=== PATIENT | male | born 1930 | race African-American/Black ===

== ENCOUNTER 2017-08-24 16:58 | Inpatient (IN) | payer OTHER ==
[~2017-08-24] VITALS: Ht 167.6 cm; Wt 8.2 kg
[2017-08-24 19:15] LABS: BASOPHILS % 0.6 % (0.0-2.0); EOSINOPHILS % 0.6 % (0.0-5.0); HEMATOCRIT. 30.7 % (42.0-52.0); HEMOGLOBIN. 10.4 g/dL (14.0-18.0); LYMPHOCYTES % 25.4 % (20.0-50.0); MEAN CORPUSCULAR HEMOGLOBIN 31.6 pg (28.0-32.0); MEAN CORPUSCULAR VOLUME 93.1 fL (80.0-94.0); MEAN PLATELET VOLUME 9.5 fl (7.4-10.4); MONOCYTES % 5.3 % (2.0-8.0); NEUTROPHILS % 68.1 % (40.0-76.0); PLATELET 144 x1000/uL (130-400); RED CELL DISTRIBUTION WIDTH 16.8 % (11.6-14.6)
[2017-08-24 19:17] LABS: CHLORIDE 113 mEq/L (98-107)
[2017-08-24 19:18] LABS: PROTHROMBIN TIME 10.5 sec (9.4-11.6)
[2017-08-24] MEDS ORDERED: DEXTROSE 50% WATER 50ML SYRINGE IV ONE (19:22)
[2017-08-24 19:26] LABS: CARBON DIOXIDE 25 mEq/L (21-32)
[2017-08-24 19:28] LABS: CLARITY URINE TURBID (CLEAR); COLOR URINE YELLOW (YELLOW); GLUCOSE URINE NEGATIVE (NEGATIVE); KETONES URINE NEGATIVE (NEGATIVE); LEUKOCYTE ESTERASE URINE 3+ (NEGATIVE); NITRITE URINE NEGATIVE (NEGATIVE); OCCULT BLOOD URINE 2+ (NEGATIVE); PROTEIN URINE TRACE (NEGATIVE); SPECIFIC GRAVITY URINE 1.016 (1.005-1.030); UROBILINOGEN URINE 0.2 E.U./dL (0.2-1.0)
[2017-08-24] MEDS ORDERED: CEFTRIAXONE 2 G PREMIX 50 ML IV ONE (20:00)
[2017-08-24] MEDS ORDERED: LEVOFLOXACIN 750MG PREMIX 150 ML IV ONE (20:00)
[2017-08-24] MEDS ORDERED: SODIUM CHLORIDE 0.9% 1000ML BAG (SEPSIS BOLUS) IV ONE (20:45)
[2017-08-24] MEDS ORDERED: DOCUSATE SODIUM 100MG CAPSULE PO PRN (21:30)
[2017-08-24] MEDS ORDERED: ONDANSETRON HCL 4MG/2ML VIAL IV PRN (21:30)
[2017-08-24] MEDS ORDERED: ACETAMINOPHEN 325MG TABLET PO PRN (21:30)
[2017-08-24 22:04] LABS: AMMONIA 43 uMol/L (<32)
[2017-08-24 22:30] VITALS: BP 110/47
[2017-08-24 23:00] VITALS: BP 110/47
[2017-08-24] MEDS ORDERED: FURO80TA3 PO (23:24)
[2017-08-24] MEDS ORDERED: ASPI-867 PO (23:25)
[2017-08-24] MEDS ORDERED: ATOR40TA70 PO (23:25)
[2017-08-25] VITALS: BP 109/48
[2017-08-25] MEDS: DEXT 5%/0.45% NACL 1000ML 1,000 ML IV SCH ×2 (00:31→21:40)
[2017-08-25] MEDS: ENOXAPARIN 40MG/0.4ML SYR SUBCUT SCH ×2 (00:35→21:32)
[2017-08-25 03:54] LABS: *AMPHETAMINES SCREEN URINE NEGATIVE (NEGATIVE); *BARBITURATES SCREEN URINE NEGATIVE (NEGATIVE); *BENZODIAZEPINES SCREEN URINE NEGATIVE (NEGATIVE); *COCAINE SCREEN URINE NEGATIVE (NEGATIVE); CANNABINOID URINE SCREEN NEGATIVE (NEGATIVE); METHADONE URINE SCREEN NEGATIVE (NEGATIVE); OPIATES URINE SCREEN PRESUMTIVE POSITIVE (NEGATIVE); PHENCYCLIDINE URINE SCREEN NEGATIVE (NEGATIVE)
[2017-08-25 04:00] VITALS: BP 114/45
[2017-08-25] MEDS: DEXTROSE 50% WATER 50ML SYRINGE IV PRN ×2 (06:09→08:34)
[2017-08-25] MEDS: BLOOD SUGAR DIAGNOSTIC STRIP TEST SCH ×4 (06:15→21:32)
[2017-08-25 06:23] LABS: HEMOGLOBIN. 9.5 g/dL (14.0-18.0); MEAN CORPUSCULAR HEMOGLOBIN 31.3 pg (28.0-32.0); MEAN CORPUSCULAR VOLUME 91.9 fL (80.0-94.0); MEAN PLATELET VOLUME 9.5 fl (7.4-10.4); PLATELET 131 x1000/uL (130-400); RED BLOOD CELL COUNT 3.04 mill/uL (4.7-6.1); RED CELL DISTRIBUTION WIDTH 16.9 % (11.6-14.6)
[2017-08-25 07:08] LABS: CARBON DIOXIDE 26 mEq/L (21-32); CHLORIDE 114 mEq/L (98-107); HDL CHOLESTEROL 44 mg/dL (40-59); LDL CHOLESTEROL 90 mg/dL (5-100); PHOSPHORUS 2.7 mg/dL (2.5-4.9)
[2017-08-25] MEDS: INSULIN LISPRO 100 UNITS/ML SUBCUT SCH ×4 (07:15→21:00)
[2017-08-25 08:00] VITALS: BP 119/48
[2017-08-25] MEDS: PANTOPRAZOLE SODIUM 40 MG/VIAL IV SCH (08:36)
[2017-08-25 16:00] VITALS: BP 125/53
[2017-08-25 17:47] LABS: PLATELET ESTIMATE NORMAL
[2017-08-25 17:55] LABS: T4 FREE 1.2 ng/dL (0.76-1.46)
[2017-08-25 18:20] LABS: FOLIC ACID (FOLATE) SERUM 5.9 ng/mL (>5.38)
[2017-08-25 20:00] VITALS: BP 119/51
[2017-08-25 20:43] LABS: AMMONIA < 25 uMol/L (<32)
[2017-08-25] MEDS ORDERED: LEVOFLOXACIN 500MG PREMIX 100 ML IV SCH (21:00)
[2017-08-26] VITALS: BP 131/56
[2017-08-26 04:00] VITALS: BP 134/64
[2017-08-26] MEDS: INSULIN LISPRO 100 UNITS/ML SUBCUT SCH ×2 (07:15→12:15)
[2017-08-26 07:29] LABS: HEMATOCRIT. 28.7 % (42.0-52.0); HEMOGLOBIN. 9.7 g/dL (14.0-18.0); MEAN CORPUSCULAR HEMOGLOBIN 31.2 pg (28.0-32.0); MEAN CORPUSCULAR VOLUME 92.5 fL (80.0-94.0); MEAN PLATELET VOLUME 10.2 fl (7.4-10.4); PLATELET 116 x1000/uL (130-400); RED CELL DISTRIBUTION WIDTH 17.1 % (11.6-14.6)
[2017-08-26] MEDS: BLOOD SUGAR DIAGNOSTIC STRIP TEST SCH ×2 (07:31→11:55)
[2017-08-26 07:47] LABS: CARBON DIOXIDE 27 mEq/L (21-32); CHLORIDE 112 mEq/L (98-107); T4 FREE 1.22 ng/dL (0.76-1.46)
[2017-08-26 08:00] VITALS: BP 129/59
[2017-08-26] MEDS: PANTOPRAZOLE SODIUM 40 MG/VIAL IV SCH (08:58)
[2017-08-26 12:11] VITALS: BP 103/48
[2017-08-26 16:00] VITALS: BP 132/63
[2017-08-26 16:12] VITALS: BP 122/69
[2017-08-26] MEDS ORDERED: FUROSEMIDE 20MG TABLET PO SCH (17:15)
[2017-08-26 17:25] LABS: PLATELET ESTIMATE DECREAS
[2017-08-26] MEDS ORDERED: CARVEDILOL 3.125 MG TABLET PO SCH (21:00)
[2017-08-27] MEDS ORDERED: LISINOPRIL 2.5MG TABLET PO SCH (09:00)
[2017-08-27 13:27] LABS: C-PEPTIDE 0.7 ng/mL (1.1-4.4); INSULIN 1.7 uIU/mL (2.6-24.9)
== END 2017-08-26 16:50 | disposition short-term general hospital (02) | DRG 871 ==
LOC: ER 17:04 → 5WST 20:12 → SUPCPDRO 20:34 → ENRESERV 21:14
PROVIDERS: ADMIT Family Medicine Adult Medicine; ATTEND Family Medicine Adult Medicine
DX: A41.9 Sepsis, unspecified organism (principal); J69.0 Pneumonitis due to inhalation of food and vomit; G92 Toxic encephalopathy; E44.0 Moderate protein-calorie malnutrition; E87.0 Hyperosmolality and hypernatremia; E87.2 Acidosis; T68.XXXA Hypothermia, initial encounter; D69.6 Thrombocytopenia, unspecified; E11.51 Type 2 diabetes mellitus with diabetic peripheral angiopathy without gangrene; N39.0 Urinary tract infection, site not specified; I42.9 Cardiomyopathy, unspecified; R47.01 Aphasia; E11.649 Type 2 diabetes mellitus with hypoglycemia without coma; D64.9 Anemia, unspecified; E78.5 Hyperlipidemia, unspecified; I25.10 Atherosclerotic heart disease of native coronary artery without angina pectoris; R00.1 Bradycardia, unspecified; E78.00 Pure hypercholesterolemia, unspecified; I11.9 Hypertensive heart disease without heart failure; Z87.891 Personal history of nicotine dependence; Z89.511 Acquired absence of right leg below knee; Z89.512 Acquired absence of left leg below knee; Z79.4 Long term (current) use of insulin; Z68.29 Body mass index [BMI] 29.0-29.9, adult; Z86.73 Personal history of transient ischemic attack (TIA), and cerebral infarction without residual deficits; Y93.89 Activity, other specified; Y92.89 Other specified places as the place of occurrence of the external cause; Y99.8 Other external cause status
CPT/HCPCS: 36415; 70450; 70551; 71010; 80048; 80053; 80061; 80076; 80305; 81001; 82140; 82533; 82607; 82746; 82947; 82962; 83036; 83520; 83525; 83605; 83735; 84100; 84439; 84443; 84481; 84681; 85025; 85610; 86376; 87040; 87086; 92610; 93005; 93306; 96365; 99291; C9113; G0482; J0696; J1650; J1956; J7030; A4315

== ENCOUNTER 2017-09-11 11:55 | Inpatient (IN) | payer OTHER ==
[2017-09-11] VITALS (14 sets, daily range): BP systolic 85–119; BP diastolic 31–61
[~2017-09-11] VITALS: Ht 152.4 cm; Wt 74.4 kg
[~2017-09-11 11:55] MED LIST: ASPI-867 PO; ATOR40TA70 PO; FURO80TA3 PO
[2017-09-11] MEDS ORDERED: PIPERACILLIN SODIUM/TAZOBACTAM 4.5 G in DEXT 5% WATER 100 ML IV SCH (13:00)
[2017-09-11] MEDS ORDERED: VANCOMYCIN 1 G PREMIX 200 ML IV SCH ×2 (13:00→23:00)
[2017-09-11] MEDS ORDERED: SODIUM CHLORIDE 0.9% 1000ML BAG (SEPSIS BOLUS) IV ONE (13:00)
[2017-09-11 13:04] LABS: BASOPHILS % 0.3 % (0.0-2.0); EOSINOPHILS % 0.3 % (0.0-5.0); HEMOGLOBIN. 8.6 g/dL (14.0-18.0); LYMPHOCYTES % 22.8 % (20.0-50.0); MEAN CORPUSCULAR HEMOGLOBIN 30.8 pg (28.0-32.0); MEAN CORPUSCULAR VOLUME 93.3 fL (80.0-94.0); MEAN PLATELET VOLUME 10.7 fl (7.4-10.4); MONOCYTES % 2.9 % (2.0-8.0); NEUTROPHILS % 73.7 % (40.0-76.0); PLATELET 61 x1000/uL (130-400); RED BLOOD CELL COUNT 2.79 mill/uL (4.7-6.1); RED CELL DISTRIBUTION WIDTH 17.7 % (11.6-14.6)
[2017-09-11 13:06] LABS: GLUCOSE URINE NEGATIVE (NEGATIVE); KETONES URINE NEGATIVE (NEGATIVE); LEUKOCYTE ESTERASE URINE 3+ (NEGATIVE); NITRITE URINE NEGATIVE (NEGATIVE); OCCULT BLOOD URINE 1+ (NEGATIVE); PROTEIN URINE TRACE (NEGATIVE); SPECIFIC GRAVITY URINE 1.011 (1.005-1.030); UROBILINOGEN URINE 0.2 E.U./dL (0.2-1.0)
[2017-09-11 13:10] LABS: AMMONIA 42 uMol/L (<32)
[2017-09-11] MEDS ORDERED: ATROPINE SULFATE 1MG/10ML SYR ONE (13:10)
[2017-09-11 13:11] LABS: CLARITY URINE CLOUDY (CLEAR); COLOR URINE YELLOW (YELLOW)
[2017-09-11] MEDS ORDERED: ATROPINE SULFATE 1MG/10ML SYR IV SCH (13:15)
[2017-09-11] MEDS ORDERED: ATROPINE SULFATE 0.1MG/ML 10ML DISP.SYRIN IV ONE (13:15)
[2017-09-11 13:20] LABS: CARBON DIOXIDE 33 mEq/L (21-32); CHLORIDE 110 mEq/L (98-107); TROPONIN I 0.04 ng/mL (0.00-0.04)
[2017-09-11] MEDS ORDERED: SODIUM CHLORIDE 0.9% 1,800 ML IV SCH (13:30)
[2017-09-11 13:45] LABS: *AMPHETAMINES SCREEN URINE NEGATIVE (NEGATIVE); *BARBITURATES SCREEN URINE NEGATIVE (NEGATIVE); *BENZODIAZEPINES SCREEN URINE NEGATIVE (NEGATIVE); *COCAINE SCREEN URINE NEGATIVE (NEGATIVE); CANNABINOID URINE SCREEN NEGATIVE (NEGATIVE); METHADONE URINE SCREEN NEGATIVE (NEGATIVE); OPIATES URINE SCREEN NEGATIVE (NEGATIVE); PHENCYCLIDINE URINE SCREEN NEGATIVE (NEGATIVE)
[2017-09-11] MEDS ORDERED: HYDROCORTISONE SOD SUCCINATE 100 MG/2 ML VIAL IV SCH (14:37)
[2017-09-11] MEDS ORDERED: DOPAMINE 400MG PREMIX 250 ML IV ONE ×2 (15:49→16:00)
[2017-09-11] MEDS ORDERED: ENOXAPARIN 40MG/0.4ML SYR SUBCUT SCH (18:00)
[2017-09-11] MEDS ORDERED: NITROGLYCERIN 0.4MG TABLET SL SL PRN (18:00)
[2017-09-11] MEDS ORDERED: NOREPINEPHRINE 4 MG in DEXT 5% WATER 246 ML IV PRN ×2 (18:00→21:30)
[2017-09-11] MEDS ORDERED: MAGNESIUM/ALUMINUM HYDROXIDE/SIMETHICONE 30ML UDC PO PRN (18:00)
[2017-09-11] MEDS ORDERED: DIPHENHYDRAMINE 50MG/ML VIAL IV PRN (18:00)
[2017-09-11] MEDS ORDERED: ONDANSETRON HCL 4MG/2ML VIAL IV PRN (18:00)
[2017-09-11] MEDS ORDERED: GUAIFENESIN 200MG/10ML SUGAR FREE UDC PO PRN (18:00)
[2017-09-11] MEDS ORDERED: NA PHOS,M-B/NA PHOS,DI-BA ENEMA 118ML PR PRN (18:00)
[2017-09-11] MEDS ORDERED: ZOLPIDEM TARTRATE 5MG TABLET PO PRN (18:00)
[2017-09-11] MEDS ORDERED: ACETAMINOPHEN 325MG TABLET PO PRN (18:00)
[2017-09-11] MEDS ORDERED: CLONIDINE 0.1MG TABLET PO PRN (18:00)
[2017-09-11] MEDS ORDERED: DEXTROSE 50% WATER 50ML SYRINGE IV PRN (19:00)
[2017-09-11 19:37] LABS: FOLIC ACID (FOLATE) SERUM > 20.00 ng/mL (>5.38); VITAMIN B12 SERUM > 2000.0 pg/mL (211-911)
[2017-09-11] MEDS ORDERED: NOREPINEPHRINE 4 MG in DEXT 5% WATER 246 ML IV ONE (20:00)
[2017-09-11] MEDS ORDERED: NOREPINEPHRINE 4 MG in DEXT 5% WATER 246 ML IV SCH (20:15)
[2017-09-11] MEDS ORDERED: IPRATROPIUM/ALBUTEROL 0.5-3(2.5)MG/3ML NEB INH PRN (20:51)
[2017-09-11] MEDS ORDERED: DEXT 5%/LACTATED RINGERS 1,000 ML IV SCH (20:52)
[2017-09-11] MEDS ORDERED: INSULIN LISPRO 100 UNITS/ML SUBCUT SCH (21:00)
[2017-09-11] MEDS ORDERED: BLOOD SUGAR DIAGNOSTIC STRIP TEST SCH (21:00)
[2017-09-11] MEDS ORDERED: LORAZEPAM 2MG/ML CPJ IV PRN (21:30)
[2017-09-11] MEDS ORDERED: PHENYLEPHRINE 20 MG in DEXT 5% WATER 248 ML IV PRN (21:30)
[2017-09-11] MEDS: FAMOTIDINE 20MG/2ML VIAL IV SCH (21:56)
[2017-09-11] MEDS: SUCRALFATE 1 G/10 ML UDC PO SCH (21:56)
[2017-09-11] MEDS ORDERED: LEVOFLOXACIN 500MG PREMIX 100 ML IV SCH (22:00)
[2017-09-11] MEDS ORDERED: DEXT 5%/0.9% NACL 1,000 ML IV SCH (22:15)
[2017-09-11] MEDS: LEVETIRACETAM 750 MG in SODIUM CHLORIDE 0.9% 100 ML IV SCH (23:21)
[2017-09-12] VITALS (161 sets, daily range): BP systolic 2–168; BP diastolic -13–145
[2017-09-12] MEDS: NOREPINEPHRINE 16 MG in DEXT 5% WATER 234 ML IV PRN (01:26)
[2017-09-12 05:32] LABS: HEMATOCRIT. 24.1 % (42.0-52.0); MEAN CORPUSCULAR HEMOGLOBIN 31.2 pg (28.0-32.0); MEAN CORPUSCULAR VOLUME 93.3 fL (80.0-94.0); MEAN PLATELET VOLUME 11.5 fl (7.4-10.4); PLATELET 69 x1000/uL (130-400); RED BLOOD CELL COUNT 2.58 mill/uL (4.7-6.1)
[2017-09-12] MEDS: INSULIN LISPRO 100 UNITS/ML SUBCUT SCH ×3 (06:24→18:26)
[2017-09-12] MEDS: BLOOD SUGAR DIAGNOSTIC STRIP TEST SCH ×3 (06:24→17:59)
[2017-09-12] MEDS ORDERED: CEFTRIAXONE 2 G in DEXTROSE 5% WATER 50 ML IV SCH (07:15)
[2017-09-12] MEDS: DEXTROSE 5% WATER 1,000 ML IV SCH ×2 (07:42→21:55)
[2017-09-12] MEDS: SUCRALFATE 1 G/10 ML UDC PO SCH ×4 (07:46→21:54)
[2017-09-12] MEDS: FAMOTIDINE 20MG/2ML VIAL IV SCH (08:43)
[2017-09-12] MEDS ORDERED: ASPIRIN 325MG EC TABLET PO SCH (09:00)
[2017-09-12 09:22] LABS: PLATELET ESTIMATE DECREASED
[2017-09-12] MEDS ORDERED: VANCOMYCIN 500 MG PREMIX 100 ML IV SCH (10:00)
[2017-09-12] MEDS ORDERED: CARV3.1242 PO (10:27)
[2017-09-12] MEDS: LEVETIRACETAM 750 MG in SODIUM CHLORIDE 0.9% 100 ML IV SCH (11:28)
[2017-09-12] MEDS: MEROPENEM 1,000 MG in SODIUM CHLORIDE 0.9% 100 ML IV SCH (16:27)
[2017-09-12] MEDS: LEVOFLOXACIN 250MG PREMIX 50 ML IV SCH (21:54)
[2017-09-13] VITALS (95 sets, daily range): BP systolic 76–142; BP diastolic 29–95
[2017-09-13] MEDS: DOPAMINE HCL 400 MG in DEXT 5% WATER 245 ML IV PRN ×2 (00:03→22:59)
[2017-09-13] MEDS: LEVETIRACETAM 750 MG in SODIUM CHLORIDE 0.9% 100 ML IV SCH ×3 (00:04→22:58)
[2017-09-13] MEDS: MEROPENEM 1,000 MG in SODIUM CHLORIDE 0.9% 100 ML IV SCH ×3 (00:04→21:44)
[2017-09-13] MEDS: BLOOD SUGAR DIAGNOSTIC STRIP TEST SCH ×4 (00:44→17:39)
[2017-09-13 05:26] LABS: BASOPHILS % 0.3 % (0.0-2.0); EOSINOPHILS % 0.8 % (0.0-5.0); HEMATOCRIT. 24.6 % (42.0-52.0); HEMOGLOBIN. 8.1 g/dL (14.0-18.0); LYMPHOCYTES % 17.6 % (20.0-50.0); MEAN CORPUSCULAR HEMOGLOBIN 31.1 pg (28.0-32.0); MEAN CORPUSCULAR VOLUME 93.9 fL (80.0-94.0); MEAN PLATELET VOLUME 10.4 fl (7.4-10.4); MONOCYTES % 2.3 % (2.0-8.0); PLATELET 66 x1000/uL (130-400); RED BLOOD CELL COUNT 2.61 mill/uL (4.7-6.1); RED CELL DISTRIBUTION WIDTH 18.2 % (11.6-14.6)
[2017-09-13] MEDS: INSULIN LISPRO 100 UNITS/ML SUBCUT SCH ×4 (06:00→17:57)
[2017-09-13] MEDS: SUCRALFATE 1 G/10 ML UDC PO SCH ×4 (07:01→21:44)
[2017-09-13] MEDS: DEXTROSE 5% WATER 1,000 ML IV SCH ×2 (09:07→23:08)
[2017-09-13] MEDS: FAMOTIDINE 20MG/2ML VIAL IV SCH (09:07)
[2017-09-13] MEDS: NOREPINEPHRINE 16 MG in DEXT 5% WATER 234 ML IV PRN (09:08)
[2017-09-13] MEDS ORDERED: ALBUMIN HUMAN 25GM/100ML (25%) IV NR (12:15)
[2017-09-13] MEDS ORDERED: SODIUM CHLORIDE 0.9% 1,000 ML IV SCH (12:15)
[2017-09-13 13:07] LABS: BG BASE EXCESS -1.2 mmol/L (-2.0-2.0); BG CARBOXYHEMOGLOBIN 0.3 % (0.5-1.5); BG DEOXYHEMOGLOBIN 19.5 % (0.0-5.0); BG FRACTION INSPIRED OXYGEN 32; BG HCO3 ACT 24.8 mmol/L (22.0-26.0); BG METHEMOGLOBIN 0.7 % (0.0-1.5); BG OXYGEN SATURATION 80.3 % (92.0-98.5); BG OXYHEMOGLOBIN 79.5 % (94.0-97.0); BG PCO2 48.1 mmHg (35.0-45.0); BG PH 7.331 (7.350-7.450); BG PO2 48.6 mmHg (75.0-100.0); BG SAMPLE SITE RIGHT RADIAL; BG TOTAL HEMOGLOBIN 9.3 g/dL (12.0-18.0); BG VENT MODE NASAL CANNULA
[2017-09-13 14:02] LABS: HEPATITIS B SURFACE ANTIGEN NEGATIVE
[2017-09-13 14:06] LABS: BG BASE EXCESS -3.3 mmol/L (-2.0-2.0); BG CARBOXYHEMOGLOBIN 0.3 % (0.5-1.5); BG DEOXYHEMOGLOBIN 4.3 % (0.0-5.0); BG FRACTION INSPIRED OXYGEN 32; BG HCO3 ACT 21.7 mmol/L (22.0-26.0); BG METHEMOGLOBIN 0.8 % (0.0-1.5); BG OXYGEN SATURATION 95.7 % (92.0-98.5); BG OXYHEMOGLOBIN 94.6 % (94.0-97.0); BG PCO2 38.6 mmHg (35.0-45.0); BG PH 7.367 (7.350-7.450); BG PO2 88.3 mmHg (75.0-100.0); BG SAMPLE SITE LEFT RADIAL; BG VENT MODE NASAL CANNULA
[2017-09-13 14:31] LABS: HEPATITIS B CORE AB IGM NEGATIVE
[2017-09-13 14:32] LABS: HEPATITIS A AB IGM NEGATIVE (NEGATIVE)
[2017-09-13] MEDS ORDERED: VANCOMYCIN 1 G PREMIX 200 ML IV SCH ×2 (15:00→18:00)
[2017-09-13] MEDS ORDERED: SODIUM CHLORIDE 0.9% 500 ML IV NR (18:20)
[2017-09-13] MEDS: LEVOFLOXACIN 250MG PREMIX 50 ML IV SCH (23:09)
[2017-09-14] VITALS (91 sets, daily range): BP systolic 70–140; BP diastolic 24–107
[2017-09-14] MEDS: BLOOD SUGAR DIAGNOSTIC STRIP TEST SCH ×5 (00:27→23:17)
[2017-09-14 05:13] LABS: BASOPHILS % 0.3 % (0.0-2.0); EOSINOPHILS % 0.7 % (0.0-5.0); HEMOGLOBIN. 8.2 g/dL (14.0-18.0); MEAN CORPUSCULAR HEMOGLOBIN 30.4 pg (28.0-32.0); MEAN PLATELET VOLUME 9.9 fl (7.4-10.4); MONOCYTES % 3.1 % (2.0-8.0); NEUTROPHILS % 87.9 % (40.0-76.0); PLATELET 62 x1000/uL (130-400); RED BLOOD CELL COUNT 2.69 mill/uL (4.7-6.1); RED CELL DISTRIBUTION WIDTH 18.3 % (11.6-14.6)
[2017-09-14] MEDS: INSULIN LISPRO 100 UNITS/ML SUBCUT SCH ×5 (06:00→23:17)
[2017-09-14] MEDS: SUCRALFATE 1 G/10 ML UDC PO SCH ×4 (07:34→21:09)
[2017-09-14] MEDS: FAMOTIDINE 20MG/2ML VIAL IV SCH (09:31)
[2017-09-14] MEDS: MEROPENEM 1,000 MG in SODIUM CHLORIDE 0.9% 100 ML IV SCH ×2 (09:32→21:10)
[2017-09-14] MEDS ORDERED: POTASSIUM CHLORIDE 20MEQ/PACKET PO SCH (11:00)
[2017-09-14] MEDS ORDERED: DEXTROSE 5% WATER 1,000 ML IV SCH (11:15)
[2017-09-14] MEDS: LEVETIRACETAM 750 MG in SODIUM CHLORIDE 0.9% 100 ML IV SCH (11:43)
[2017-09-14] MEDS ORDERED: KCL 20MEQ/100ML PREMIX 100 ML IV SCH (12:00)
[2017-09-14] MEDS: DOPAMINE HCL 400 MG in DEXT 5% WATER 245 ML IV PRN (12:23)
[2017-09-14] MEDS ORDERED: POTASSIUM CHLORIDE INJ 20 MEQ in DEXT 5% WATER 100 ML IV SCH (12:30)
[2017-09-14 12:49] LABS: AMMONIA 36 uMol/L (<32)
[2017-09-14] MEDS ORDERED: POTASSIUM CHLORIDE INJ 40 MEQ in DEXT 5% WATER 250 ML IV ONE (13:00)
[2017-09-14] MEDS: DEXT 5% WATER + KCL 20MEQ/L 1,000 ML IV SCH (14:20)
[2017-09-14] MEDS: IPRATROPIUM/ALBUTEROL 0.5-3(2.5)MG/3ML NEB HHN SCH (20:08)
[2017-09-14] MEDS: ACETYLCYSTEINE 200MG/ML 20% VIAL 4ML PO SCH (22:00)
[2017-09-14] MEDS: LEVOFLOXACIN 250MG PREMIX 50 ML IV SCH (23:16)
[2017-09-15] VITALS (83 sets, daily range): BP systolic 90–132; BP diastolic 33–73
[2017-09-15] MEDS: IPRATROPIUM/ALBUTEROL 0.5-3(2.5)MG/3ML NEB HHN SCH ×7 (00:18→23:08)
[2017-09-15] MEDS: ACETYLCYSTEINE 200MG/ML 20% VIAL 4ML PO SCH ×3 (00:19→23:09)
[2017-09-15] MEDS: LEVETIRACETAM 750 MG in SODIUM CHLORIDE 0.9% 100 ML IV SCH ×3 (00:26→23:20)
[2017-09-15] MEDS: DEXT 5% WATER + KCL 20MEQ/L 1,000 ML IV SCH ×2 (03:54→16:54)
[2017-09-15 05:51] LABS: BASOPHILS % 0.2 % (0.0-2.0); EOSINOPHILS % 0.8 % (0.0-5.0); HEMATOCRIT. 23.8 % (42.0-52.0); HEMOGLOBIN. 7.4 g/dL (14.0-18.0); LYMPHOCYTES % 7.8 % (20.0-50.0); MEAN CORPUSCULAR HEMOGLOBIN 30.5 pg (28.0-32.0); MEAN PLATELET VOLUME 11.5 fl (7.4-10.4); MONOCYTES % 3.3 % (2.0-8.0); NEUTROPHILS % 87.9 % (40.0-76.0); PLATELET 61 x1000/uL (130-400); RED BLOOD CELL COUNT 2.43 mill/uL (4.7-6.1); RED CELL DISTRIBUTION WIDTH 18.8 % (11.6-14.6)
[2017-09-15] MEDS: INSULIN LISPRO 100 UNITS/ML SUBCUT SCH ×3 (06:00→18:00)
[2017-09-15] MEDS: SUCRALFATE 1 G/10 ML UDC PO SCH ×4 (06:45→21:06)
[2017-09-15] MEDS: BLOOD SUGAR DIAGNOSTIC STRIP TEST SCH ×3 (06:46→17:12)
[2017-09-15] MEDS ORDERED: LACTULOSE 20G/30ML UDC PO PRN (07:00)
[2017-09-15] MEDS: MEROPENEM 1,000 MG in SODIUM CHLORIDE 0.9% 100 ML IV SCH ×2 (09:31→21:06)
[2017-09-15] MEDS: FAMOTIDINE 20MG/2ML VIAL IV SCH (09:31)
[2017-09-15] MEDS ORDERED: VANCOMYCIN 750 MG PREMIX 150 ML IV SCH (18:00)
[2017-09-16] VITALS (61 sets, daily range): BP systolic 94–136; BP diastolic 45–78
[2017-09-16] MEDS: IPRATROPIUM/ALBUTEROL 0.5-3(2.5)MG/3ML NEB HHN SCH ×5 (04:03→20:12)
[2017-09-16] MEDS: BLOOD SUGAR DIAGNOSTIC STRIP TEST SCH ×4 (05:30→17:01)
[2017-09-16] MEDS: SUCRALFATE 1 G/10 ML UDC PO SCH ×4 (05:33→20:44)
[2017-09-16] MEDS: INSULIN LISPRO 100 UNITS/ML SUBCUT SCH ×4 (06:00→17:16)
[2017-09-16] MEDS: ACETYLCYSTEINE 200MG/ML 20% VIAL 4ML PO SCH ×3 (06:00→21:48)
[2017-09-16] MEDS: MEROPENEM 1,000 MG in SODIUM CHLORIDE 0.9% 100 ML IV SCH ×2 (08:00→20:44)
[2017-09-16] MEDS: FAMOTIDINE 20MG/2ML VIAL IV SCH (08:00)
[2017-09-16] MEDS: DEXT 5% WATER + KCL 20MEQ/L 1,000 ML IV SCH ×2 (08:00→17:16)
[2017-09-16 09:10] LABS: BG BASE EXCESS -2.9 mmol/L (-2.0-2.0); BG CARBOXYHEMOGLOBIN 0.3 % (0.5-1.5); BG DEOXYHEMOGLOBIN 2.6 % (0.0-5.0); BG FRACTION INSPIRED OXYGEN 28; BG HCO3 ACT 20.6 mmol/L (22.0-26.0); BG METHEMOGLOBIN 0.7 % (0.0-1.5); BG OXYGEN SATURATION 97.4 % (92.0-98.5); BG OXYHEMOGLOBIN 96.4 % (94.0-97.0); BG PCO2 30.1 mmHg (35.0-45.0); BG PH 7.453 (7.350-7.450); BG PO2 108.9 mmHg (75.0-100.0); BG SAMPLE SITE RIGHT RADIAL; BG TOTAL HEMOGLOBIN 7.8 g/dL (12.0-18.0); BG VENT MODE NASAL CANNULA
[2017-09-16] MEDS: LEVETIRACETAM 750 MG in SODIUM CHLORIDE 0.9% 100 ML IV SCH ×2 (10:01→23:05)
[2017-09-16 11:57] LABS: BASOPHILS % 0.4 % (0.0-2.0); EOSINOPHILS % 1.6 % (0.0-5.0); HEMATOCRIT. 22.6 % (42.0-52.0); HEMOGLOBIN. 7.6 g/dL (14.0-18.0); LYMPHOCYTES % 8.9 % (20.0-50.0); MEAN CORPUSCULAR HEMOGLOBIN 30.8 pg (28.0-32.0); MEAN CORPUSCULAR VOLUME 92.3 fL (80.0-94.0); MEAN PLATELET VOLUME 10.3 fl (7.4-10.4); MONOCYTES % 4.4 % (2.0-8.0); NEUTROPHILS % 84.7 % (40.0-76.0); PLATELET 71 x1000/uL (130-400); RED BLOOD CELL COUNT 2.45 mill/uL (4.7-6.1); RED CELL DISTRIBUTION WIDTH 18.9 % (11.6-14.6)
[2017-09-16 12:03] LABS: INR 1.2; PROTHROMBIN TIME 12.3 sec (9.4-11.6)
[2017-09-16 12:59] LABS: CHLORIDE 111 mEq/L (98-107)
[2017-09-16 13:37] LABS: CARBON DIOXIDE 25 mEq/L (21-32)
[2017-09-16] MEDS ORDERED: POTASSIUM CHLORIDE 20MEQ TABLET SR PO NR (14:45)
[2017-09-16] MEDS: COLISTIMETHATE SODIUM 150MG/VIAL INH SCH (16:42)
[2017-09-17] VITALS (28 sets, daily range): BP systolic 89–132; BP diastolic 42–74
[2017-09-17] MEDS: BLOOD SUGAR DIAGNOSTIC STRIP TEST SCH ×4 (00:22→23:24)
[2017-09-17] MEDS: IPRATROPIUM/ALBUTEROL 0.5-3(2.5)MG/3ML NEB HHN SCH ×6 (00:26→20:29)
[2017-09-17] MEDS: COLISTIMETHATE SODIUM 150MG/VIAL INH SCH ×2 (04:19→15:42)
[2017-09-17] MEDS: ACETYLCYSTEINE 200MG/ML 20% VIAL 4ML PO SCH ×3 (05:41→22:24)
[2017-09-17] MEDS: SUCRALFATE 1 G/10 ML UDC PO SCH ×4 (05:41→20:45)
[2017-09-17] MEDS: INSULIN LISPRO 100 UNITS/ML SUBCUT SCH ×4 (06:37→23:29)
[2017-09-17] MEDS ORDERED: MAGNESIUM 2 G PREMIX 50 ML IV NR (08:00)
[2017-09-17] MEDS: MAGNESIUM OXIDE 400MG TABLET PO SCH (08:09)
[2017-09-17] MEDS: DEXT 5% WATER + KCL 20MEQ/L 1,000 ML IV SCH ×2 (08:09→20:45)
[2017-09-17] MEDS: FAMOTIDINE 20MG/2ML VIAL IV SCH (08:09)
[2017-09-17] MEDS: MEROPENEM 1,000 MG in SODIUM CHLORIDE 0.9% 100 ML IV SCH ×2 (08:10→20:45)
[2017-09-17 09:05] LABS: BASOPHILS % 0.2 % (0.0-2.0); EOSINOPHILS % 0.9 % (0.0-5.0); HEMATOCRIT. 22.9 % (42.0-52.0); HEMOGLOBIN. 7.8 g/dL (14.0-18.0); LYMPHOCYTES % 9.3 % (20.0-50.0); MEAN CORPUSCULAR HEMOGLOBIN 31.3 pg (28.0-32.0); MEAN CORPUSCULAR VOLUME 91.8 fL (80.0-94.0); MEAN PLATELET VOLUME 10.4 fl (7.4-10.4); MONOCYTES % 5.2 % (2.0-8.0); NEUTROPHILS % 84.4 % (40.0-76.0); PLATELET 63 x1000/uL (130-400); RED CELL DISTRIBUTION WIDTH 18.4 % (11.6-14.6)
[2017-09-17 09:38] LABS: CARBON DIOXIDE 23 mEq/L (21-32); CHLORIDE 110 mEq/L (98-107)
[2017-09-17 11:50] LABS: AMMONIA < 25 uMol/L (<32)
[2017-09-17] MEDS: LEVETIRACETAM 750 MG in SODIUM CHLORIDE 0.9% 100 ML IV SCH ×2 (12:08→22:44)
[2017-09-18] VITALS (9 sets, daily range): BP systolic 93–106; BP diastolic 44–66
[2017-09-18] MEDS: IPRATROPIUM/ALBUTEROL 0.5-3(2.5)MG/3ML NEB HHN SCH ×5 (00:31→16:26)
[2017-09-18] MEDS: BLOOD SUGAR DIAGNOSTIC STRIP TEST SCH ×3 (06:18→17:15)
[2017-09-18] MEDS: SUCRALFATE 1 G/10 ML UDC PO SCH ×3 (06:58→17:15)
[2017-09-18] MEDS: INSULIN LISPRO 100 UNITS/ML SUBCUT SCH ×3 (07:00→17:15)
[2017-09-18] MEDS: ACETYLCYSTEINE 200MG/ML 20% VIAL 4ML PO SCH ×3 (07:00→15:03)
[2017-09-18] MEDS: COLISTIMETHATE SODIUM 150MG/VIAL INH SCH ×2 (08:31→08:42)
[2017-09-18 09:03] LABS: BG CARBOXYHEMOGLOBIN 0.8 % (0.5-1.5); BG DEOXYHEMOGLOBIN 3.2 % (0.0-5.0); BG FRACTION INSPIRED OXYGEN 28; BG HCO3 ACT 21.6 mmol/L (22.0-26.0); BG METHEMOGLOBIN 0.3 % (0.0-1.5); BG OXYGEN SATURATION 96.8 % (92.0-98.5); BG OXYHEMOGLOBIN 95.7 % (94.0-97.0); BG PCO2 36.7 mmHg (35.0-45.0); BG PH 7.388 (7.350-7.450); BG PO2 91.8 mmHg (75.0-100.0); BG SAMPLE SITE RIGHT BRACHIAL; BG TOTAL HEMOGLOBIN 7.4 g/dL (12.0-18.0); BG VENT MODE NASAL CANNULA
[2017-09-18] MEDS: FAMOTIDINE 20MG/2ML VIAL IV SCH (09:21)
[2017-09-18] MEDS: MEROPENEM 1,000 MG in SODIUM CHLORIDE 0.9% 100 ML IV SCH (09:21)
[2017-09-18] MEDS: MAGNESIUM OXIDE 400MG TABLET PO SCH (09:22)
[2017-09-18] MEDS: DEXT 5% WATER + KCL 20MEQ/L 1,000 ML IV SCH (12:27)
[2017-09-18] MEDS: LEVETIRACETAM 750 MG in SODIUM CHLORIDE 0.9% 100 ML IV SCH (12:27)
== END 2017-09-18 18:00 | disposition short-term general hospital (02) | DRG 871 ==
LOC: ER 11:55 → CVICU 17:56 → ENRESERV 18:11 → MICUNO 09-12 09:30 → 5EST 09-17 17:40
PROVIDERS: ADMIT Internal Medicine; ATTEND Internal Medicine
DX: A41.50 Gram-negative sepsis, unspecified (principal); E43 Unspecified severe protein-calorie malnutrition; K72.00 Acute and subacute hepatic failure without coma; J69.0 Pneumonitis due to inhalation of food and vomit; J96.00 Acute respiratory failure, unspecified whether with hypoxia or hypercapnia; G93.41 Metabolic encephalopathy; N17.0 Acute kidney failure with tubular necrosis; K86.89 Other specified diseases of pancreas; R65.21 Severe sepsis with septic shock; G03.9 Meningitis, unspecified; I50.23 Acute on chronic systolic (congestive) heart failure; D61.818 Other pancytopenia; I42.9 Cardiomyopathy, unspecified; E87.0 Hyperosmolality and hypernatremia; N39.0 Urinary tract infection, site not specified; M48.56XA Collapsed vertebra, not elsewhere classified, lumbar region, initial encounter for fracture; D69.6 Thrombocytopenia, unspecified; E11.51 Type 2 diabetes mellitus with diabetic peripheral angiopathy without gangrene; I48.91 Unspecified atrial fibrillation; E86.0 Dehydration; D63.8 Anemia in other chronic diseases classified elsewhere; E11.649 Type 2 diabetes mellitus with hypoglycemia without coma; E66.3 Overweight; E78.00 Pure hypercholesterolemia, unspecified; E78.5 Hyperlipidemia, unspecified; E83.42 Hypomagnesemia; E87.6 Hypokalemia; F03.90 Unspecified dementia, unspecified severity, without behavioral disturbance, psychotic disturbance, mood disturbance, and anxiety; I11.0 Hypertensive heart disease with heart failure; I25.10 Atherosclerotic heart disease of native coronary artery without angina pectoris; I45.9 Conduction disorder, unspecified; K80.20 Calculus of gallbladder without cholecystitis without obstruction; M48.061 Spinal stenosis, lumbar region without neurogenic claudication; Z79.4 Long term (current) use of insulin; Z86.73 Personal history of transient ischemic attack (TIA), and cerebral infarction without residual deficits; Z89.512 Acquired absence of left leg below knee; Z89.511 Acquired absence of right leg below knee; Z79.82 Long term (current) use of aspirin; Z79.899 Other long term (current) drug therapy
CPT/HCPCS: 36415; 36600; 70450; 71010; 72125; 74176; 80048; 80053; 80061; 80076; 80202; 80305; 81001; 82140; 82270; 82375; 82607; 82746; 82805; 82962; 83520; 83540; 83550; 83605; 83690; 83735; 83880; 84439; 84443; 84478; 84484; 85025; 85610; 86705; 86709; 86803; 87015; 87040; 87045; 87070; 87077; 87086; 87186; 87340; 87427; 87449; 89055; 92610; 93005; 93306; 93970; 94640; 94664; 94667; 96361; 96365; 96366; 96368; 96375; 97163; 99291; J0461; J0696; J0770; J1265; J1720; J1815; J1953; J1956; J2060; J2185; J2543; J3370; J3475; J3480; J3490; J7030; J7040; J7042; J7050; J7060; J7070; J7120; J7608; J7620; P9047; A4315